=== PATIENT | female | born 1940 | race Caucasian/White ===

== ENCOUNTER 2025-03-22 09:14 | Outpatient (CLI) | payer OTHER | END 2025-03-22 09:15 | disposition home or self-care (01) | LOC: CSHWCC 09:14 | PROVIDERS: ATTEND Nurse Practitioner Family | DX: L97.312 Non-pressure chronic ulcer of right ankle with fat layer exposed (principal); I87.2 Venous insufficiency (chronic) (peripheral); I50.22 Chronic systolic (congestive) heart failure; I89.0 Lymphedema, not elsewhere classified | CPT/HCPCS: 11042 ==